=== PATIENT | female | born 1980 | race Caucasian/White ===

== ENCOUNTER → 2023-06-14 | Outpatient (CLI) | payer OTHER, SELFPAY ==
[2023-06-14 10:24] LABS: Hematocrit 41.7 % (37-47); Hemoglobin 13.5 g/dL (12.0-15.0); Mean Corp Hgb Conc 32.4 g/dL (32-36); Mean Corpuscular Hgb 29.9 pg (27.0-32.0); Mean Corpuscular Volume 92.5 fL (81-99); Platelet Count 303 K/mm3 (150-450); RBC Distribution Width CV 13.2 % (11.6-14.6); RBC Distribution Width SD 44.8 fl (35.1-43.9); Red Blood Count 4.51 M/mm3 (4.2-5.4); White Blood Count 4.7 K/mm3 (4.4-11.0)
[2023-06-14 11:00] LABS: ALB/GLOB Ratio 1.1 RATIO (0.9-2.4); AST(SGOT) 14 U/L (15-37); Alanine Aminotransfer ALT/SGPT 22 U/L (13-56); Albumin, Serum 3.6 g/dL (3.2-5.0); Alkaline Phosphatase 42 U/L (45-117); Anion Gap 5 (5-15); BUN 12 mg/dL (7-18); BUN/Creat Ratio 13.2 RATIO (10-20); Calcium,Total 8.9 mg/dL (8.5-10.1); Chloride 106 mmol/L (98-107); Cholesterol 129 mg/dL (200); Creatinine, Serum 0.91 mg/dL (0.55-1.02); EST Glomerular Filtration Rate 73 mL/min (>60); Est Glom Filt Rate - Afr Amer 88 mL/min (>60); Globulin 3.4 g/dL (2.2-4.2); Glucose 91 mg/dL (74-106); High Density Lipoprotein 63 mg/dL; Sodium Level 138 mmol/L (136-145); Thyroid Stim Hormone (TSH) 2.09 uIU/mL (0.358-3.74); Triglycerides 63 mg/dL; Very Low Density Lipoprotein 13 mg/dL (5-40)
[2023-06-14 12:19] LABS: Hemoglobin A1c 5.2 % (3.8-5.6)
== END | disposition home or self-care (01) ==
LOC: MFPLAB 08:10
PROVIDERS: PCP Family Medicine; Visit Provider Family Medicine
DX: Z00.00 Encounter for general adult medical examination without abnormal findings (principal); Z13.228 Encounter for screening for other metabolic disorders; Z13.220 Encounter for screening for lipoid disorders; Z13.0 Encounter for screening for diseases of the blood and blood-forming organs and certain disorders involving the immune mechanism
CPT/HCPCS: 36415; 80053; 80061; 83036; 84443; 85027

== ENCOUNTER → 2024-06-14 | Outpatient (CLI) | payer OTHER, SELFPAY ==
[2024-06-14 11:04] LABS: Anion Gap 6 (5-15); BUN 10 mg/dL (7-18); BUN/Creat Ratio 10.5 RATIO (10-20); Chloride 108 mmol/L (98-107); Cholesterol 138 mg/dL (200); Creatinine, Serum 0.96 mg/dL (0.55-1.02); EST Glomerular Filtration Rate 68 mL/min (>60); Est Glom Filt Rate - Afr Amer 82 mL/min (>60); Glucose 91 mg/dL (74-106); High Density Lipoprotein 70 mg/dL; Potassium 4.3 mmol/L (3.5-5.1); Sodium Level 138 mmol/L (136-145); Triglycerides 40 mg/dL; Very Low Density Lipoprotein 8 mg/dL (5-40)
== END | disposition home or self-care (01) ==
LOC: MFPLAB 08:07
PROVIDERS: PCP Family Medicine; Referring Provider Nurse Practitioner Family; Visit Provider Nurse Practitioner Family
DX: Z13.220 Encounter for screening for lipoid disorders (principal); Z13.1 Encounter for screening for diabetes mellitus
CPT/HCPCS: 36415; 80048; 80061

== ENCOUNTER → 2025-07-12 | Outpatient (CLI) | payer BC, SELFPAY ==
[2025-07-12 10:52] LABS: Anion Gap 11 (5-15); BUN 13 mg/dL (4-19); BUN/Creat Ratio 14.2 RATIO (10-20); Calcium,Total 9.3 mg/dL (7.6-11.0); Carbon Dioxide 25.4 mmol/L (21.0-32.0); Chloride 102 mmol/L (98-108); Cholesterol 148 mg/dL (<=200); Glucose 92 mg/dL (70-99); Low Density Lipoprotein Calc. 72 mg/dL; Potassium 4.3 mmol/L (3.3-5.1); Triglycerides 49 mg/dL; Very Low Density Lipoprotein 10 mg/dL (5-40); Vitamin D,25 Hydroxy 37.5 ng/mL (30-100); cholesterol:hdl ratio screen 2.27
== END | disposition home or self-care (01) ==
LOC: MFPLAB 08:05
PROVIDERS: PCP Family Medicine; Visit Provider Nurse Practitioner Family
DX: Z00.00 Encounter for general adult medical examination without abnormal findings (principal)
CPT/HCPCS: 36415; 80048; 80061; 82306; 84443